=== PATIENT | male | born 1995 | race Caucasian/White ===

== ENCOUNTER 2020-09-05 18:25 | Emergency (ER) | payer OTHER ==
[~2020-09-05] VITALS: Ht 177.8 cm; Wt 113.4 kg
[~2020-09-05 18:25] MED LIST: ADVIL; ALBU90OI INH; AMOX250 PO; AMOX500 PO; Bactrim Ds Tab1 EACH PO; CEPH500 PO; CYCL10 PO; DOXY100 PO; FAMO20 PO; HYDACE5 PO; HYDR.5TC TOP; IBUP600 PO; NAPR500 PO; PERM5TC TOP; PRED10 PO; PROM25 PO; Permethrin60 GM TP; RXHYDACE PO; SULTRIDS PO; Tessalon Perle100 MG PO; Ultram50 MG PO; [UNRECOGNIZED DRUG - OTHER]
[2020-09-05 18:58] LABS: BASOPHILS ABSOLUTE AUTO 0.06 K/mm3 (0.00-0.23); BASOPHILS PERCENT AUTO 0 % (0-2); EOSINOPHILS PERCENT AUTO 1 % (0-6); Hematocrit 43.2 % (37.0-53.0); Hemoglobin 14.9 g/dL (13.5-17.5); IMMATURE GRAN ABSOLUTE AUTO 0.07 K/mm3 (0.00-0.10); IMMATURE GRAN PERCENT AUTO 0 % (0-1); LYMPHOCYTES PERCENT AUTO 9 % (21-46); MONOCYTES PERCENT AUTO 4 % (4-13); Mean Corpuscular HGB 28.5 pg (26.0-34.0); Mean Corpuscular HGB Conc 34.5 g/dL (31.5-36.5); Mean Corpuscular Volume 83 fL (80-100); NEUTROPHILS PERCENT AUTO 86 % (41-73); Platelet Count 179 K/mm3 (150-400); RDW Coefficient Variation 12.3 % (11.7-14.2); RDW Standard Deviation 37.2 fL (35.1-46.3); Red Blood Cell Count 5.23 M/mm3 (4.30-5.90); White Blood Cell Count 18.43 K/mm3 (4.00-11.30)
[2020-09-05 19:13] LABS: International Normalized Ratio 1.02; Prothrombin Time Results 10.9 Sec (9.7-11.5)
[2020-09-05 19:30] LABS: Ethanol (Alcohol), Blood, Med <3 mg/dL
[2020-09-05 19:32] LABS: Alanine Aminotransfer (ALT/SGP 36 U/L (12-78); Albumin, Blood 4.5 g/dL (3.4-5.0); Albumin/Globulin Ratio 1.4 (0.8-1.8); Alk Phos 81 U/L (50-136); Anion Gap 8 mmol/L (6-16); Aspartate Aminotrans (AST/SGOT 20 U/L (12-37); Bilirubin, Total 0.5 mg/dL (0.1-1.0); Blood Urea Nitrogen 17 mg/dL (8-24); Bun/Creatinine Ratio 17.4 (12.0-20.0); CO2, Blood 23 mmol/L (21-32); Calcium, Blood 8.8 mg/dL (8.5-10.1); Chloride, Blood 110 mmol/L (98-108); Creatinine, Blood 0.98 mg/dL (0.60-1.20); Globulin, Blood 3.3 g/dL (2.2-4.0); Glomerular Filtration Rate >60 (60-); Glucose, Blood 90 mg/dL (70-99); Potassium, Blood 3.6 mmol/L (3.5-5.5); Sodium, Blood 141 mmol/L (136-145); Total Protein, Blood 7.8 g/dL (6.4-8.2)
[2020-09-05] MEDS ORDERED: IBUP800 PO (20:46)
== END 2020-09-05 20:37 | disposition home or self-care (01) ==
LOC: ER 18:25
PROVIDERS: Physician Assistant
DX: S00.81XA Abrasion of other part of head, initial encounter (principal); S30.811A Abrasion of abdominal wall, initial encounter; S20.311A Abrasion of right front wall of thorax, initial encounter; V86.59XA Driver of other special all-terrain or other off-road motor vehicle injured in nontraffic accident, initial encounter; Y92.410 Unspecified street and highway as the place of occurrence of the external cause
CPT/HCPCS: 36415; 70450; 71260; 72125; 74177; 80053; 83690; 85025; 85610; 96361; 96374-59; 99285-25; G0480; J3010; J7030; Q9967

== ENCOUNTER 2022-05-04 15:01 | Inpatient (IN) | payer OTHER ==
[~2022-05-04] VITALS: Ht 177.8 cm; Wt 98.2 kg
[~2022-05-04 15:01] MED LIST changes: +Adderall Xr 1515 MG PO; +IBUP800 PO; +Prozac20 MG PO
[2022-05-04 15:40] LABS: Calcium, Ionized (POC) 1.11 mmol/L (1.10-1.46); Chloride (POC) 102 mmol/L (98-108); Creatinine (POC) 1.1 mg/dL (0.8-1.3); Glucose (ISTAT POC) 142 mg/dL (70-99); Hemoglobin (POC) 15.6 g/dL (13.5-17.5); Sodium (POC) 140 mmol/L (135-148); Total CO2 (POC) 29 mmol/L (21-32)
[2022-05-04 15:51] LABS: BASOPHILS ABSOLUTE AUTO 0.04 K/mm3 (0.00-0.23); BASOPHILS PERCENT AUTO 0 % (0-2); EOSINOPHILS ABSOLUTE AUTO 0.32 K/mm3 (0.00-0.68); EOSINOPHILS PERCENT AUTO 2 % (0-6); Hematocrit 45.9 % (37.0-53.0); Hemoglobin 15.3 g/dL (13.5-17.5); IMMATURE GRAN ABSOLUTE AUTO 0.05 K/mm3 (0.00-0.10); IMMATURE GRAN PERCENT AUTO 0 % (0-1); LYMPHOCYTES ABSOLUTE AUTO 2.42 K/mm3 (0.84-5.20); LYMPHOCYTES PERCENT AUTO 17 % (21-46); MONOCYTES ABSOLUTE AUTO 1.21 K/mm3 (0.16-1.47); MONOCYTES PERCENT AUTO 8 % (4-13); Mean Corpuscular HGB 28.4 pg (26.0-34.0); Mean Corpuscular HGB Conc 33.3 g/dL (31.5-36.5); Mean Corpuscular Volume 85 fL (80-100); Mean Platelet Volume 12.7 fL (9.1-12.4); NEUTROPHILS ABSOLUTE AUTO 10.63 K/mm3 (1.96-9.15); NEUTROPHILS PERCENT AUTO 73 % (41-73); Platelet Count 178 K/mm3 (150-400); RDW Coefficient Variation 12.5 % (11.7-14.2); RDW Standard Deviation 38.4 fL (35.1-46.3); Red Blood Cell Count 5.39 M/mm3 (4.30-5.90); White Blood Cell Count 14.67 K/mm3 (4.00-11.30)
[2022-05-04 16:02] LABS: Albumin, Blood 3.7 g/dL (3.4-5.0); Bilirubin, Total 0.4 mg/dL (0.1-1.0); Bun/Creatinine Ratio 10.5 (12.0-20.0); Calcium, Blood 8.3 mg/dL (8.5-10.1); Creatinine, Blood 1.05 mg/dL (0.60-1.20); Globulin, Blood 3.7 g/dL (2.2-4.0); Potassium, Blood 4.2 mmol/L (3.5-5.5); Total Protein, Blood 7.4 g/dL (6.4-8.2)
[2022-05-04 16:34] LABS: U Amphetamine Screen Not Detected; U Barbituate Screen Not Detected; U Benzodiazapine Screen Not Detected; U Buprenorphine Screen Not Detected; U Cannabinoids Screen DETECTED; U Cocaine Screen DETECTED; U Methadone Screen Not Detected; U Methamphetamine Screen Not Detected; U Opiates Screen Not Detected; U Oxycodone Screen Not Detected; U Phencyclidine Screen Not Detected; U Propoxyphene Screen Not Detected
[2022-05-04 18:54] LABS: Influenza A, PCR NEGATIVE (NEGATIVE); Influenza B, PCR NEGATIVE (NEGATIVE); Resp Syncytial Virus, PCR NEGATIVE (NEGATIVE); SARS-Cov-2 (COVID-19) PCR, MMC NEGATIVE (NEGATIVE)
--- NOTE | 2022-05-04 19:09 | NUR ---
PT ARRIVES TO UNIT WITH ASTRID SALGADO AT 1855. PT IS SHIVERING, ON 6L/NC. ABLE TO MOVE SELF TO ICU BED. HE IS ON NARCAN GTT 10ML/1MG/HR. HIS TEMP IS 101.8. HIS SATS ARE MID 80S, HFNC PLACED AND SATS TO 89%. WILL REPORT TO NOC SHIFT.
[2022-05-05 03:42] LABS: BASOPHILS ABSOLUTE AUTO 0.06 K/mm3 (0.00-0.23); BASOPHILS PERCENT AUTO 0 % (0-2); EOSINOPHILS ABSOLUTE AUTO 0.02 K/mm3 (0.00-0.68); EOSINOPHILS PERCENT AUTO 0 % (0-6); Hematocrit 45.1 % (37.0-53.0); Hemoglobin 15.2 g/dL (13.5-17.5); IMMATURE GRAN ABSOLUTE AUTO 0.08 K/mm3 (0.00-0.10); IMMATURE GRAN PERCENT AUTO 0 % (0-1); LYMPHOCYTES ABSOLUTE AUTO 2.02 K/mm3 (0.84-5.20); LYMPHOCYTES PERCENT AUTO 9 % (21-46); MONOCYTES ABSOLUTE AUTO 1.25 K/mm3 (0.16-1.47); MONOCYTES PERCENT AUTO 6 % (4-13); Mean Corpuscular HGB 28.5 pg (26.0-34.0); Mean Corpuscular HGB Conc 33.7 g/dL (31.5-36.5); Mean Corpuscular Volume 85 fL (80-100); Mean Platelet Volume 12.3 fL (9.1-12.4); NEUTROPHILS ABSOLUTE AUTO 19.35 K/mm3 (1.96-9.15); NEUTROPHILS PERCENT AUTO 85 % (41-73); Platelet Count 164 K/mm3 (150-400); RDW Coefficient Variation 12.6 % (11.7-14.2); RDW Standard Deviation 39.2 fL (35.1-46.3); Red Blood Cell Count 5.33 M/mm3 (4.30-5.90); White Blood Cell Count 22.78 K/mm3 (4.00-11.30)
[2022-05-05 04:01] LABS: Albumin, Blood 3.3 g/dL (3.4-5.0); Bilirubin, Total 0.7 mg/dL (0.1-1.0); Calcium, Blood 8.3 mg/dL (8.5-10.1); Creatinine, Blood 0.92 mg/dL (0.60-1.20); Globulin, Blood 3.4 g/dL (2.2-4.0); Potassium, Blood 4.2 mmol/L (3.5-5.5); Total Protein, Blood 6.7 g/dL (6.4-8.2)
--- NOTE | 2022-05-05 05:30 | NUR ---
END OF SHIFT SUMMARY NEURO: A&OX4. FULL STRENGTH AND SENSATION IN ALL FOUR EXTREMITIES. PT DENIES NUMBNESS/TINGLING, HEADACHE OR VISION CHANGES. RESPIRATORY: 1-2L NC WHILE SLEEPING. CLEAR BREATH SOUNDS APPRECIATED. EVEN RISE AND FALL OF CHEST. PT DENIES SOB/DYSPNEA. CARDIAC: NSR 70s-90s BPM. NORMOTENSIVE. SBP 120s-140s. PT DENIES CHEST PAIN. CAP REFILL < 3 SEC. GI/- CONTINENT OF BOWEL AND BLADDER. NORMOACTIVE BOWEL TONES APPRECIATED. NO PAIN TO ABDOMEN WITH PALPATION. ADEQUATE CLEAR YELLOW URINE OUPUT. MUSCULOSKELETAL: FULL STRENGTH ALL FOUR EXTREMITIES. STAND BY ASSIST AND VERBAL CUES WHEN WALKING. PSYCHOSOCIAL: COOPERATIVE AND INTROSPECTIVE TO LIFE CHOICES LEADING TO ARREST.
--- NOTE | 2022-05-05 11:26 | NUR ---
PT WAS NOT ABLE TO TOLERATE BEING ON RA, SPO2 QUICKLY DROPPED TO 84%, O2 REPLACED AT 2L VIA NASAL CANNULA AND SPO2 RETURNED TO MID 90s QUICKLY. PT WAS ABLE TO STAND, HE REPORTS THAT HE REMAINS DIZZY BUT DIZZINESS DID NOT CHANGE WITH REPOSITIONING OR STANDING. HE IS STRONG WHEN STANDING. HR DOES NOT CHANGE WITH AMBULATION.
--- NOTE | 2022-05-05 17:38 | NUR ---
SHIFT SUMMARY PT A/O X4, TALKING IN FULL SENTENCES, SKIN PWD AND ITNACT. PT DID HAVE AN EPISODE THIS AM OF FEVER AND DIAPHORESIS WHICH RESOLVED. VSS. PT REPORTS THAT CHEST IS TENDER, BUT NO ACTIVE CP. THIS RN DID ATTEMPT TO REMOVE O2 THIS AFTERNOON FOR POSSIBLE D/C BUT PT WAS NOT ABLE TO TOLERATE BEING OFF OF O2, WHIS SPO2 QUICKLY DROPPED TO LOW TO MID 80s WITHOUT ACTIVITY ON RA, PT WAS PLACED BACK ON 2L O2 VIA NASAL CANNULA, MD WAS UPDATED. AT THIS TIME THE RESULTS OF THE ECHO ARE STILL PENDING, THIS RN HAS CALLED TO ENQUIRE ABOUT RESULTS T/O THE DAY. PT WAS ABLE TO STAND AND AMBULATE A SHORT DISTANCE IN THE ROOM TODAY, HE REPORTED DIZZINESS BUT STS THAT THE DIZZINESS WAS UNCHANGED WITH MOVEMENT OR AMBULATION. SKIN PWD AND INTACT. NADN.
[2022-05-06 03:37] LABS: BASOPHILS ABSOLUTE AUTO 0.05 K/mm3 (0.00-0.23); BASOPHILS PERCENT AUTO 0 % (0-2); EOSINOPHILS ABSOLUTE AUTO 0.44 K/mm3 (0.00-0.68); EOSINOPHILS PERCENT AUTO 4 % (0-6); Hematocrit 42.4 % (37.0-53.0); Hemoglobin 14.3 g/dL (13.5-17.5); IMMATURE GRAN ABSOLUTE AUTO 0.03 K/mm3 (0.00-0.10); IMMATURE GRAN PERCENT AUTO 0 % (0-1); LYMPHOCYTES PERCENT AUTO 18 % (21-46); MONOCYTES ABSOLUTE AUTO 0.82 K/mm3 (0.16-1.47); MONOCYTES PERCENT AUTO 7 % (4-13); Mean Corpuscular HGB 28.7 pg (26.0-34.0); Mean Corpuscular HGB Conc 33.7 g/dL (31.5-36.5); Mean Corpuscular Volume 85 fL (80-100); Mean Platelet Volume 12.4 fL (9.1-12.4); NEUTROPHILS ABSOLUTE AUTO 8.19 K/mm3 (1.96-9.15); NEUTROPHILS PERCENT AUTO 70 % (41-73); Platelet Count 153 K/mm3 (150-400); RDW Coefficient Variation 12.4 % (11.7-14.2); Red Blood Cell Count 4.98 M/mm3 (4.30-5.90); White Blood Cell Count 11.63 K/mm3 (4.00-11.30)
[2022-05-06 03:57] LABS: Albumin, Blood 3.2 g/dL (3.4-5.0); Albumin/Globulin Ratio 0.9 (0.8-1.8); Bilirubin, Total 0.5 mg/dL (0.1-1.0); Bun/Creatinine Ratio 14.3 (12.0-20.0); Calcium, Blood 8.8 mg/dL (8.5-10.1); Creatinine, Blood 0.98 mg/dL (0.60-1.20); Globulin, Blood 3.5 g/dL (2.2-4.0); Potassium, Blood 4.4 mmol/L (3.5-5.5); Total Protein, Blood 6.7 g/dL (6.4-8.2)
--- NOTE | 2022-05-06 04:26 | NUR ---
END OF SHIFT SUMMARY NEURO: A&OX4. DROWSY OVERNIGHT.NO COMPLAINTS OF NUMBNESS/TINGLING OR VISION CHANGES. HEADACHE MANAGED WITH PRN MEDS OVERNIGHT. FULL SENSATION AND STRENGTH IN ALL FOUR EXTREMITIES. CARDIAC: NSR. 60-90s BPM. SBP 100-150s. NO COMPLAINTS OF CHEST PAIN OVERNIGHT. RESPIRATORY:2-3 L NC OVERNIGHT WHILE SLEEPING TO MAINTAIN SAT >92%. WILL DROP IN O2 DUE TO HEAVY SNORING. GI/: CONTINENT OF BOWELS AND BLADDER. NO BOWEL MOVEMENT OVERNIGHT. PRODUCING ADEQUATE AMOUNTS OF CLEAR/YELLOW URINE. MUSCULOSKELETAL: FULL STRENGTH. STANDBY ASSIST AND VERBAL CUES. PSYCHOSOCIAL: COOPERATIVE, PLEASANT AND MAINTAINS BRIGHT OUTLOOK.
--- NOTE | 2022-05-06 08:42 | NUR ---
ASSUMED CARE PT IS ALERT AND ORIENTED X4. SPO2 >92% ON RA. MAP >65; HR 60S. NO C/O OF CP, SOB, OR NAUSEA. VS WNL. PLAN TO AMBULATE THEN POSSIBLE DISCHARGE.
--- NOTE | 2022-05-06 09:55 | NUR ---
TRANSFER OF CARE PT MOVED TO MEDICAL FLOOR W/ NO ISSUES. DISCUSSED EVENT AND PT STATED THAT HE HAD NOT DONE COCAINE IN SEVERAL MONTHS.
[2022-05-06] MEDS ORDERED: ALBU90OI INH (10:58)
--- NOTE | 2022-05-06 11:13 | NUR ---
PT ARRIVED TO MEDICAL FLOOR VIA WC A/OX4, IND WITH AMBULATION AND STEADY ON FEET. PT DENIES PAIN OR CONCERNS. PT UPDATED ON DISCHARGE PLAN AND REPORTED HE MAY NEED MD NOTE FOR DAYS OFF AT WORK. DR. WINTER NOTIFIED AND DR. WINTER CAME AND SPOKE TO PT AND GAVE NOTE FOR DAYS OFF OF WORK PER REQUEST. DISCUSSED DC MEDICATIONS AND PLAN WITH PT. PT VU. PT ALREADY HAS APPT WITH DR. LOU ON SUNDAY, ADVISED PT TOP GO TO APPT.
== END 2022-05-06 11:28 | disposition home or self-care (01) | DRG 917 ==
LOC: ER 15:01 → ICUW 15:02 → ICUE 18:49 → MEDS 05-05 15:08 → ICUE 05-05 15:09 → MEDS 05-06 10:14
PROVIDERS: Emergency Medicine; ADMIT Family Medicine
PROC: 5A12012 Performance of Cardiac Output, Single, Manual (ICD-10-PCS; principal; 2022-05-04)
DX: T40.5X1A Poisoning by cocaine, accidental (unintentional), initial encounter (principal); I46.8 Cardiac arrest due to other underlying condition; J69.0 Pneumonitis due to inhalation of food and vomit; J96.01 Acute respiratory failure with hypoxia; F14.10 Cocaine abuse, uncomplicated; Z20.822 Contact with and (suspected) exposure to COVID-19; J45.909 Unspecified asthma, uncomplicated; Z79.899 Other long term (current) drug therapy
CPT/HCPCS: 0241U; 36415; 71045; 71046; 71260; 80047; 80053; 83880; 84484; 85014; 85025; 85379; 93005; 93010; 93246; 93306; 96365; 96366; 96376; 99291-25; A9270; G0378; J1650; J2310; Q9967

== ENCOUNTER → 2022-06-07 | Outpatient (CLI) | payer OTHER ==
[2022-06-07 20:02] LABS: U Amphetamine Screen Not Detected; U Barbituate Screen Not Detected; U Benzodiazapine Screen Not Detected; U Buprenorphine Screen Not Detected; U Cannabinoids Screen DETECTED; U Cocaine Screen DETECTED; U Methadone Screen Not Detected; U Methamphetamine Screen Not Detected; U Opiates Screen Not Detected; U Oxycodone Screen Not Detected; U Phencyclidine Screen Not Detected; U Propoxyphene Screen Not Detected
== END | disposition home or self-care (01) ==
LOC: LAB SHORT 12:00
PROVIDERS: Family Medicine
DX: F90.0 Attention-deficit hyperactivity disorder, predominantly inattentive type (principal)